=== PATIENT | female | born 1955 | race Caucasian/White ===

== ENCOUNTER 2019-03-16 09:44 | Emergency (ER) | payer OTHER, MEDICARE ==
[~2019-03-16] VITALS: Ht 160 cm; Wt 63.5 kg
[~2019-03-16 09:44] MED LIST: ALPR0.254 PO; BACL10TA PO; BIOT5TAB PO; CRV25T PO; DICL100G18 TP; DULO60CA6 PO; ESTR2TAB4 PO; FURO-124 PO; HYDR-34 PO; LISI-552 PO; MILN100T PO; MODA100T40 PO; NAPR1TAB21 PO; PLAQUENIL PO; POTA10TA36 PO; PREG150C PO
--- NOTE | 2019-03-16 10:27 | NUR ---
SEE LIST FOR CURRENT MEDS
--- NOTE | 2019-03-16 10:42 | Diagnostic Imaging Report ---
Indication: Chronic shoulder pain Findings: Severe arthritic glenohumeral joint space narrowing with bone on bone formation inferiorly. A density lateral to the humeral head suggests a large joint effusion or large bursal collection. A fracture is not identified. No osseous displacement of the acromioclavicular or coracoclavicular joint spaces. Impression: Probable effusion lateral to the humerus with profound glenohumeral arthritis. No fracture evident. Dictated by: Dictated on workstation # [id number]
--- NOTE | 2019-03-16 10:56 | ED Upper Extremity ---
General Chief Complaint: Upper Extremity Stated Complaint: R SHOULDER PAIN Nursing Triage Note: PT AMBULATED TO ROOM 10 PT CO OF R SHOULDER PAIN, STATES THINKS NEEDS REPLACED, HAS SEEN ORTHOPEDIC SURGEON A FEW MONTHS AGO. STATES HAS PAIN AND LIMITED MVT Nursing Sepsis Screen: No Definite Risk Allergies and Home Medications Allergies Coded Allergies: Penicillins (Verified Allergy, Unknown, facial swelling, 09/24/16) Home Medications Alprazolam 0.25 Mg Tablet, 0.25 MG PO BID PRN for ANXIETY, (Reported) Baclofen 10 Mg Tablet, 10 MG PO TID, (Reported) Biotin 5 Mg Tablet, 5 MG PO DAILY, (Reported) Carvedilol 25 Mg Tab, 25 MG PO BID, (Reported) Diclofenac Sodium 100 Gm Gel..gram., 2 GM TP BID PRN for PAIN, (Reported) Duloxetine HCl 60 Mg Capsule.dr, 60 MG PO BID, (Reported) Estradiol 2 Mg Tablet, 3 MG PO DAILY, (Reported) TAKE 1 1/2 OF 2 MG TAB-TOTAL 3MG Furosemide 40 Mg Tablet, 40 MG PO EVERY OTHER DAY, (Reported) Hydrocodone Bit/Acetaminophen 1 Each Tablet, 1 EACH PO TID PRN for PAIN, (Reported) Lisinopril 20 Mg Tablet, 20 MG PO DAILY, (Reported) Milnacipran HCl 100 Mg Tablet, 100 MG PO BID, (Reported) Modafinil 100 Mg Tablet, 100 MG PO BID, (Reported) Potassium Chloride 10 Meq Tab.er.prt, 10 MEQ PO EVERY OTHER DAY, (Reported) Pregabalin 150 Mg Capsule, 150 MG PO TID, (Reported) [Plaquenil] , 100 MG PO BID, (Reported) Past Ybmtscj-Ctckld-Mwlmep Hx Patient Social History Alcohol Use: Occasionally Uses Recreational Drug Use: No Smoking Status: Never a Smoker Type Used: Cigarettes Recent Foreign Travel: No Contact w/Someone Who Travel: No Recent Infectious Disease Expo: No Recent Hopitalizations: No Immunizations Up To Date Date of Pneumonia Vaccine: Sep 24, 2012 Date of Influenza Vaccine: Aug 19, 2016 Seasonal Allergies Seasonal Allergies: Yes Past Medical History Surgeries: Yes (cervical cyst removed, R eardrum reconstructed,back sx x3, r knee, left RCR) Hysterectomy Respiratory: No Cardiac: Yes Hypertension Neurological: Yes Neuropathy Reproductive Disorders: No Sexually Transmitted Disease: No HIV/AIDS: No Gastrointestinal: No Musculoskeletal: Yes (lumbar stenosis) Fibromyalgia, Chronic Back Pain Endocrine: No Cancer: No Psychosocial: Yes Anxiety, Depression Integumentary: No Blood Disorders: No Physical Exam Vital Signs Vital Signs - First Documented 03/16/19 09:50 Temp 97.5 Pulse 69 Resp 18 B/P (MAP) 171/89 (116) Pulse Ox 100 Capillary Refill : Less Than 3 Seconds Height, Weight, BMI Height: 5'3.00" Weight: 140lbs. 0.0oz. 63.577533ht; 27.6 BMI Method:Stated Progress/Results/Core Measures Results/Orders My Orders Orders - СВЕТЛАНА BEVERLY DO Shoulder, Right, 3 Views (03/16/19 10:11) Vital Signs/I&O 03/16/19 09:50 Temp 97.5 Pulse 69 Resp 18 B/P (MAP) 171/89 (116) Pulse Ox 100 Blood Pressure Mean: 116 Diagnostic Imaging Comments XRAYS RIGHT SHOULDER--SEVERE ARTHRITIC CHANGES, LARGE FLUID COLLECTION AROUND JOINT/BURSA--PER RADIOLOGIST REPORT @ 1051 Reviewed: Reviewed by Me Departure Impression Primary Impression: Chronic right shoulder pain Additional Impression: EFFUSION OF BURSA OF RIGHT SHOULDER Disposition: HOME, SELF-CARE Condition: Stable Departure-Patient Inst. Referrals: RIKI ROBB MD (PCP) Primary Care Physician BERTHA CAMPOS DO Patient Instructions: Osteoarthritis (DC), Shoulder Bursitis (DC) Add. Discharge Instructions: GO DIRECTLY TO DR. CAMPOS'S OFFICE All discharge instructions reviewed with patient and/or family. Voiced understanding. СВЕТЛАНА BEVERLY DO March 16, 2019 10:56
[2019-03-16 11:03] VITALS: BP 171/89
--- NOTE | 2019-03-16 11:04 | NUR ---
PT WAS SUPPOSE TO GO TO DR CRUZ OFFICE, DR BEVERLY CALLED AND WILL TRY AND WORK HER IN. PT QUESTIONING BILL, EXPLAINED THAT SHE WOULD HAVE TO CALL BILLING FOR QUESTIONS
== END 2019-03-16 11:04 | disposition home or self-care (01) ==
LOC: EDUNIT# 09:44 → ER 09:45
DX: M25.411 Effusion, right shoulder (principal); G89.29 Other chronic pain; I10 Essential (primary) hypertension; G62.9 Polyneuropathy, unspecified; M79.7 Fibromyalgia; M48.061 Spinal stenosis, lumbar region without neurogenic claudication; F41.9 Anxiety disorder, unspecified; F32.9 Major depressive disorder, single episode, unspecified; Z88.0 Allergy status to penicillin; Z90.710 Acquired absence of both cervix and uterus; Z98.890 Other specified postprocedural states
CPT/HCPCS: 73030